=== PATIENT | female | born 1965 | race Caucasian/White ===

== ENCOUNTER → 2020-08-02 | Outpatient (CLI) | payer BC, OTHER ==
[~2020-08-02] MED LIST: OMNICEF 300 MG300 MG PO; ZITHROMAX500 MG PO
== END ==
LOC: RAD 09:40
DX: J18.9 Pneumonia, unspecified organism (principal)
CPT/HCPCS: 71046

== ENCOUNTER → 2021-11-15 | Outpatient (CLI) | payer BC, OTHER | LOC: KOH-I 08:27 | DX: K76.0 Fatty (change of) liver, not elsewhere classified (principal); K82.4 Cholesterolosis of gallbladder | CPT/HCPCS: 76700 ==

== ENCOUNTER → 2021-11-15 | Outpatient (CLI) | payer BC, OTHER ==
[2021-11-15 10:12] LABS: RED BLOOD COUNT 4.07 M/UL (4.00-5.10); WHITE BLOOD COUNT 9.1 K/UL (4.5-11.0)
[2021-11-15 11:01] LABS: BUN/CREATININE RATIO 17 (0-10)
== END ==
LOC: LAB 09:43
PROVIDERS: Internal Medicine
DX: R53.83 Other fatigue (principal); F17.200 Nicotine dependence, unspecified, uncomplicated; E78.5 Hyperlipidemia, unspecified; R73.01 Impaired fasting glucose; E55.9 Vitamin D deficiency, unspecified; Z79.899 Other long term (current) drug therapy
CPT/HCPCS: 36415; 80053; 80061; 82607; 82746; 83036; 84439; 84443; 85025

== ENCOUNTER → 2021-12-24 | Outpatient (CLI) | payer BC, OTHER | LOC: KOH-I 15:54 | DX: F17.210 Nicotine dependence, cigarettes, uncomplicated (principal) | CPT/HCPCS: 71271 ==

== ENCOUNTER → 2021-12-24 | Outpatient (CLI) | payer BC, OTHER | LOC: LAB 16:41 | DX: F17.200 Nicotine dependence, unspecified, uncomplicated (principal); R31.9 Hematuria, unspecified; N28.1 Cyst of kidney, acquired | CPT/HCPCS: 36415; 82565; 84520 ==

== ENCOUNTER → 2021-12-27 | Outpatient (CLI) | payer BC, OTHER | LOC: CT 08:45 | DX: R31.9 Hematuria, unspecified (principal); N28.1 Cyst of kidney, acquired; F17.200 Nicotine dependence, unspecified, uncomplicated | CPT/HCPCS: Q9967 ==